=== PATIENT | male | born 2000 ===

== ENCOUNTER 2020-10-20 16:35 | Emergency (ER) | payer SELFPAY ==
[2020-10-20 16:41] VITALS: BP 140/74; PULSE 75; RESP 20; TEMP 36.5; O2SAT 97
--- NOTE | 2020-10-20 16:49 | W.ED.GENAD ---
Discharge Plan Disposition Patient Disposition: HOME Condition: Good Discharge Details Clinical Impression: Acute right flank pain Primary Care Provider: Unknown,Unknown ED Provider: Pretty Kaye Discharge Instructions Instructions: Flank Pain (ED) Additional Instructions: Encourage water intake. Tylenol and ibuprofen as needed for discomfort. Your imaging and labs are reassuring today. If you develop fever/chills, increased pain, radiation of pain, change in bowel or bladder habits or other new/worsening symptoms please seek care urgently once again. Otherwise, I have asked her health care marketing manager to reach out to you regarding follow-up with primary care. Discharge Data Discharge Date/Time-TO BE ENTERED AT DEPARTURE: 10/20/20 19:10 Medical Decision Making Patient is a pleasant 19-year-old gentleman. Primarily speaks Czech. Use the language line with these for interpretation. Presents today with concern for right-sided back pain. States he woke with a discomfort. Atraumatic in origin. He denies any associated symptoms. No radiation of pain. No testicular pain. No blood in his urine, dysuria, increased frequency urgency. No change in bowel habits. He denies any abdominal pain. Has not had pain like this historically. No fevers or chills. No recent travel. Denies any respiratory symptoms. On exam, patient appears nontoxic. He rates his pain a 10 out of 10 but appears to be quite comfortable. Exam is pertinent for right-sided CVA tenderness. No midline tenderness. No abdominal pain. I am primarily concerned for potential stone. He has never had a stone before, no family history of stone. Plan to obtain CT as well as baseline blood work. Discussed this plan with the patient is in agreement. Will give Toradol to help with discomfort. FINDINGS: Liver: The liver is mildly enlarged and mildly fatty infiltrated. Gallbladder and bile ducts: The gallbladder is normal appearance. Pancreas: The pancreas is normal appearance. Spleen: The imaged portions of the spleen are normal appearance. Adrenal glands: The bilateral adrenal glands are normal appearance. Kidneys and ureters: The bilateral kidneys are normal appearance. No renal or intraureteral calculi. No hydronephrosis. Stomach and bowel: The stomach is normal appearance. The small bowel is normal appearance. Minimal, possible wall thickening within the upper rectum. The remaining colon is normal in appearance. Appendix: The appendix is normal appearance. Intraperitoneal space: Trace free pelvic fluid is seen adjacent to the sigmoid colon and rectum, on image 103, series 2. No free air. No abscess. Vasculature: Unremarkable. No abdominal aortic aneurysm. Lymph nodes: Unremarkable. No enlarged lymph nodes. Urinary bladder: The urinary bladder is normal appearance. Reproductive: The prostate gland is normal appearance. Bones/joints: Unremarkable. No acute fracture. Soft tissues: Unremarkable. IMPRESSION: 1. Minimal possible wall thickening within the upper rectum which may represent minimal proctitis. 2. Trace, minimal free pelvic fluid. No free air or abscess. 3. No evidence for a renal or intraureteral calculi. No hydronephrosis. The appendix is normal appearance. 4. Mildly enlarged, mildly fatty infiltrated liver. FINDINGS: Liver: The liver is mildly enlarged and mildly fatty infiltrated. Gallbladder and bile ducts: The gallbladder is normal appearance. Pancreas: The pancreas is normal appearance. Spleen: The imaged portions of the spleen are normal appearance. Adrenal glands: The bilateral adrenal glands are normal appearance. Kidneys and ureters: The bilateral kidneys are normal appearance. No renal or intraureteral calculi. No hydronephrosis. Stomach and bowel: The stomach is normal appearance. The small bowel is normal appearance. Minimal, possible wall thickening within the upper rectum. The remaining colon is normal in appearance. Appendix: The appendix is normal appearance. Intraperitoneal space: Trace free pelvic fluid is seen adjacent to the sigmoid colon and rectum, on image 103, series 2. No free air. No abscess. Vasculature: Unremarkable. No abdominal aortic aneurysm. Lymph nodes: Unremarkable. No enlarged lymph nodes. Urinary bladder: The urinary bladder is normal appearance. Reproductive: The prostate gland is normal appearance. Bones/joints: Unremarkable. No acute fracture. Soft tissues: Unremarkable. IMPRESSION: 1. Minimal possible wall thickening within the upper rectum which may represent minimal proctitis. 2. Trace, minimal free pelvic fluid. No free air or abscess. 3. No evidence for a renal or intraureteral calculi. No hydronephrosis. The appendix is normal appearance. 4. Mildly enlarged, mildly fatty infiltrated liver. Was on again to discuss these findings with the patient. Labs are reviewed. No leukocytosis, stable H&H. Potassium slightly low at 3.4. T bili slightly elevated at 1.8, no previous for comparison. Remaining liver enzymes are within normal limits. Patient does appear slightly dehydrated with elevated specific gravity and did have trace intact blood on urinalysis. At this point, I do not see any emergent source of the patient's discomfort. We will augment treatment thus far with Tylenol as well as Lidoderm patch. Patient does not have established primary care. Follow-up for management to help establish care for the patient within the next week with primary care for reevaluation. Return precautions were discussed with the patient. He was allowed to ask questions with the language line. All questions and concerns were addressed and he is in agreement with the plan. HPI General Mode of arrival: ambulatory. Date/Time Provider Initiated Documentation: 10/20/20 16:49. Limitations to Documentation: language barrier (used language line). Information obtained by: patient and RN notes reviewed. History of Present Illness 19 year old M presents to the emergency department with the chief complaint of right flank pain, described as severe, with intensity rated at 10. and is localized to the back. Patient reports no radiation. Patient started experiencing this hour(s) (noted when he awoke this AM) and it has been constant. No relieving factors improve symptom(s), No exacerbating factors reported . Patient notes no other symptoms.. Patient did receive the following treatments prior to arrival, none Related Data Allergies Allergy/AdvReac Type Severity Reaction Status Date / Time Penicillins Allergy Unverified 10/20/20 16:55 General Stated Complaint: FlankPain JOHNSON: 3 Review of Systems Constitutional Constitutional: Reports as per HPI, Denies chills, Denies fatigue, Denies fever(s), Denies frequent falls and Denies headache(s) Eyes Eyes: Denies change in vision ENT Ears, Nose, Mouth, and Throat: Denies headache(s) Cardiovascular Cardiovascular: Denies chest pain, Denies dyspnea and Denies dyspnea on exertion Respiratory Respiratory: Denies cough, Denies dyspnea and Denies dyspnea on exertion Gastrointestinal Gastrointestinal: Denies abdominal pain, Denies change in bowel habits and Denies fecal incontinence Genitourinary Genitourinary: Reports as per HPI, Denies hematuria, Denies genital pain, Denies testicular pain, Denies urinary hesitancy and Denies urinary incontinence Musculoskeletal Musculoskeletal: Reports as per HPI, Reports back pain, Denies muscle weakness, Denies numbness, Denies radiating pain into limb, Reports stiffness and Denies tingling Integumentary/Breasts Skin/Breast: Reports as per HPI and Denies rash Neurologic Neurologic: Reports as per HPI, Denies frequent falls, Denies headache(s), Denies localized weakness, Denies numbness, Denies radicular pain, Denies sensory deficit, Denies tingling and Denies paresthesias Endocrine Endocrine: Denies fatigue [facility] Social History Smoking/Tobacco Use Status: Never Smoking risk assessment performed?: Yes Alcohol Intake: current Alcohol Intake frequency: a few times a month Substance use type: does not use Do you feel safe at home: Yes Exam Const General: cooperative, healthy appearing, comfortable, no acute distress, well developed and well groomed Nutritional Appearance: average body habitus and well nourished Orientation: alert and awake Eyes General: appearance normal, both eyes and all related structures Neck Neck: normal visual inspection, full ROM, no lymphadenopathy and no meningeal signs Resp Effort & Inspection: normal respiratory effort and able to speak in complete sentences Auscultation: clear to auscultation bilaterally, no rales, no rhonchi and no wheezes Cardio Rate: regular rate Rhythm: regular rhythm Heart Sounds: S1 normal and S2 normal GI Inspection: normal to inspection Palpation: soft, no hepatosplenomegaly, not firm, no guarding, no hernias, no masses, no pulsatile masses, not rigid and nontender Percussion: normal to percussion Auscultation: normal bowel sounds Back/Spine/Pelvis Back: CVA tenderness (right) Thoracic/Lumbar Spine: thoracic and lumbar spine normal to inspection, thoraco-lumbar ROM normal, No paraspinal tenderness, No thoracic spinal tenderness and No lumbar spinal tenderness Skin General skin exam: no rashes or lesions noted Neuro General: patient alert and patient awake Cognition: normal cognition Speech: speech normal Gait: normal gait Motor: muscle tone normal throughout, strength 5/5 throughout, no movement abnormalities noted and no fasciculations Extrem General: normal to inspection, full ROM, capillary refill normal, no joint enlargement, no pedal edema, no calf tenderness, normal gait and other (2+ distal pulses) Psych Appearance: grossly normal and well kempt Mental Status: mental status grossly normal Speech and Movement: speech and movement normal
[2020-10-20 17:11] LABS: Bilirubin Negative (Negative); Blood Trace-intact (Negative); Clarity Clear (Clear); Glucose Negative (Negative); Ketones Negative (Negative); Leukocyte Esterase Negative (Negative); Nitrite Negative (Negative); Specific Gravity >= 1.030 (1.005-1.025); Urobilinogen 0.2 EU/dL (Up TO 0.2)
--- NOTE | 2020-10-20 17:15 | DI.CT_ITS ---
EXAM: CT RENAL COLIC WO CLINICAL HISTORY: right flank pain. TECHNIQUE: Imaging Protocol: Axial computed tomography images with coronal and sagittal reformatted images were created and reviewed CONTRAST MATERIAL: Intravenous: none Oral: None COMPARISON: No exams were available for comparison FINDINGS: VISUALIZED LUNG BASES: Lung bases not included on this study.. ABDOMEN: LIVER: The partially included liver reveals mild steatosis. No obvious focal lesions on this noninfu sed study. GALLBLADDER/BILIARY: No obvious gallbladder pathology. CBD is not dilated. PANCREAS: No evidence of pancreatic mass nor dilatation of the pancreatic duct. SPLEEN: Partially included spleen exhibits normal size. ADRENALS: There are no significant adrenal masses. KIDNEYS:No cysts evident. No solid renal masses. No calculi nor hydronephrosis. . ABDOMINAL AORTA: Abdominal aorta is not enlarged and there is no [id number] adenopat hy. ABDOMINAL WALL/GI: No evidence of significant anterior abdominal wall hernia. No bowel obstruction. Minimal possible circumferential wall thickening in the upper rectum. Above this level the colon ap pears unremarkable. There is no adjacent fat streaking at this level. There is a tiny amount of flu id adjacent to the sigmoid colon (series 2/image 103). There is no abscess nor free air. No signifi cant diverticular disease. PELVIS: LYMPH NODES: There is no intrapelvic nor inguinal adenopathy. GI: No evidence of appendicitis.Sigmoid rectum findings as above. URINARY BLADDER: No calculi nor obvious masses evident REPRODUCTIVE: Prostate gland not enlarged. Seminal vesicles unremarkable OSSEOUS: No significant osseous lesions. IMPRESSION: 1. There is slight focal area of circumferential wall thickening in the upper rectum-lower sigmoid wi th some mild associated free fluid in this region but no free air nor abscess nor diverticuli in this region. Recommend follow-up colonoscopy. 2. No evidence of renal tract calculi nor hydronephrosis. 3. The partially included liver exhibits steatosis. Correlation with appropriate blood work recommen ded. RADIATION DOSE DELIVERED: 720.04mGy.cm Total DLP DATA REPOSITORY: All CT scans at this facility are submitted to the National Radiology Data Registry (NRDR) Dose Index Registry (DIR) with the [employer] ([employer]). RADIATION OPTIMIZATION: All CT scans at this facility use at least one of these dose optimization te chniques: automated exposure control; mA and/or kV adjustment per patient size (includes targeted exa ms where dose is matched to clinical indication); or iterative reconstruction.
[2020-10-20 17:29] LABS: Bacteria Negative HPF (Negative); C & S Indicated? No; Crystals Negative HPF (Negative); Epithelial Cells Negative HPF (Negative); Mucus Negative (Negative); RBC 0-2 HPF (0-2); WBC 0-2 HPF (0-5)
[2020-10-20] MEDS: Normal Saline 1,000 ML 1000 ML IV (17:56)
[2020-10-20] MEDS: Ketorolac 30 MG/ML VIAL IVP (17:57)
--- NOTE | 2020-10-20 18:09 | DI.VRAD_ITS ---
PROCEDURE INFORMATION: Exam: CT Abdomen And Pelvis Without Contrast Exam date and time: 10/20/2020 5:23 PM Age: 19 years old Clinical indication: Abdominal tenderness; Patient HX: Right flank pain TECHNIQUE: Imaging protocol: Computed tomography of the abdomen and pelvis without contrast. COMPARISON: No relevant prior studies available. FINDINGS: Liver: The liver is mildly enlarged and mildly fatty infiltrated. Gallbladder and bile ducts: The gallbladder is normal appearance. Pancreas: The pancreas is normal appearance. Spleen: The imaged portions of the spleen are normal appearance. Adrenal glands: The bilateral adrenal glands are normal appearance. Kidneys and ureters: The bilateral kidneys are normal appearance. No renal or intraureteral calculi. No hydronephrosis. Stomach and bowel: The stomach is normal appearance. The small bowel is normal appearance. Minimal, possible wall thickening within the upper rectum. The remaining colon is normal in appearance. Appendix: The appendix is normal appearance. Intraperitoneal space: Trace free pelvic fluid is seen adjacent to the sigmoid colon and rectum, on image 103, series 2. No free air. No abscess. Vasculature: Unremarkable. No abdominal aortic aneurysm. Lymph nodes: Unremarkable. No enlarged lymph nodes. Urinary bladder: The urinary bladder is normal appearance. Reproductive: The prostate gland is normal appearance. Bones/joints: Unremarkable. No acute fracture. Soft tissues: Unremarkable. IMPRESSION: 1. Minimal possible wall thickening within the upper rectum which may represent minimal proctitis. 2. Trace, minimal free pelvic fluid. No free air or abscess. 3. No evidence for a renal or intraureteral calculi. No hydronephrosis. The appendix is normal appearance. 4. Mildly enlarged, mildly fatty infiltrated liver. Dictated and Authenticated by: Sydney Hinds MD. Ordering:TITI Olsen MD
[2020-10-20 18:11] LABS: Abs Immature Grans 0.02 10^3/uL (0.0-0.06); Absolute Basophil Count 0.02 10^3/uL (0.0-0.2); Absolute Eosinophil Count 0.14 10^3/uL (0.0-0.7); Absolute Lymphocyte Count 1.78 10^3/uL (1.2-3.4); Absolute Monocyte Count 0.57 10^3/uL (0.1-0.8); Absolute Neutrophil Count 5.42 10^3/uL (1.2-6.7); Basophils % 0.3; Eosinophils % 1.8; HCT 45.3 % (40.0-50.0); Immature Grans % 0.3; Lymphocytes % 22.4; MCH 28.8 pg (27.0-33.0); MCHC 33.1 % (32.0-36.0); MCV 87.1 fL (80-95); MPV 9.8 fL (8.0-11.0); Monocytes % 7.2; Nucleated RBC 0 %; Platelet Count 217 10^3/uL (130-400); RDW-SD 38.5 fL; WBC 7.95 10^3/uL (4.4-10.8)
[2020-10-20 18:21] LABS: ALT 33 U/L (16-63); AST 18 U/L (15-37); Albumin 4.1 g/dL (3.4-5.0); Alkaline Phosphatase 104 U/L (46-116); Anion Gap 7.6 mmol/L (3-11); BUN 13 mg/dL (7-18); Bilirubin, Total 1.8 mg/dL (0.2-1.0); CO2 27.4 mmol/L (21.0-32.0); CREATININE 0.94 mg/dL (0.70-1.30); Calcium 9.3 mg/dL (8.5-10.1); Chloride 106 mmol/L (98-107); Glucose 93 mg/dL (74-106); Potassium 3.4 mmol/L (3.5-5.1); Sodium 141 mmol/L (136-145); Total Protein 7.7 g/dL (6.4-8.2)
[2020-10-20 19:02] VITALS: BP 112/64; PULSE 55; RESP 16; TEMP 36.6
== END 2020-10-20 19:10 | disposition home or self-care (01) ==
PROVIDERS: Emergency Provider Physician Assistant
DX: M54.5 Low back pain (principal); R10.11 Right upper quadrant pain; E86.0 Dehydration
CPT/HCPCS: 36415; 80053; 96361; 96374; 99284; 74176; 81003; 81015; 85025; J1885